=== PATIENT | male | born 1985 | race African-American/Black ===

== ENCOUNTER 2022-05-17 02:51 | Emergency (ER) | payer SELFPAY ==
[2022-05-18 00:36] LABS: Bilirubin Negative (Negative); Blood, Urine Small (Negative); Glucose, Urine (Dipstick) >=1000 mg/dL (Negative); Ketone, Urine Negative (Negative); Leukocyte Moderate (Negative); Nitrite Negative (Negative); Protein, Urine (Dipstick) Negative (Neg-Trace); Urobilinogen 0.2 mg/dL (Less than 2); pH, Urine 5.5 (5.0-9.0)
[2022-05-18 00:40] LABS: Bacteria/HPF 1+ HPF (None Seen); Clarity Hazy (Clear); RBC/HPF 0-3 HPF (0-3); Specific Gravity, Urine 1.005 (1.002-1.036); WBC/HPF Greater than 50 HPF (0-3)
[2022-05-18 17:16] LABS: Chlam.trachomatis by PCR,Urine DETECTED (NotDetected); GC N.gonorrhoeae PCR,UrineVOID DETECTED (NotDetected)
== END 2022-05-18 00:17 | disposition home or self-care (01) ==
LOC: MADERS 23:51
DX: Z20.2 Contact with and (suspected) exposure to infections with a predominantly sexual mode of transmission (principal); N39.0 Urinary tract infection, site not specified; Z91.14 Patient's other noncompliance with medication regimen; E11.9 Type 2 diabetes mellitus without complications; Z79.84 Long term (current) use of oral hypoglycemic drugs
CPT/HCPCS: 36416; 81003; 81015; 87491; 87591; 99283

== ENCOUNTER 2024-07-13 19:24 | Emergency (ER) | payer OTHER, SELFPAY ==
[2024-07-13 19:56] LABS: #Basophils 0.1 thou/uL (0.0-0.2); #Eosinophils 0.1 thou/uL (0.0-0.7); #Lymphocytes 2.2 thou/uL (1.20-3.40); #Monocytes 0.5 thou/uL (0.11-0.59); #Neutrophils 3.8 thou/uL (1.40-6.50); %Basophils 1.1 % (0.0-1.0); %Eosinophils 2.2 % (0.0-10.0); %Lymphocytes 32.8 % (21.0-51.0); %Monocytes 7.3 % (0.0-10.0); %Neutrophils 56.6 % (42.0-75.0); Hematocrit 44.3 % (42.0-52.0); Mean Corpuscular HGB CONC 31.5 g/dL (32.0-36.0); Mean Corpuscular Hemoglobin 25.8 pg (27.0-31.0); Mean Platelet Volume 7.8 fL (7.4-10.4); Platelet Count 223 10x3/uL (130-400); RBC Distribution Width 12.9 % (11.5-14.5); Red Blood Cell (RBC) Count 5.41 mill/uL (4.70-6.10); White Blood Cell (WBC) Count 6.6 10x3/uL (4.8-10.8)
[2024-07-13] MEDS ORDERED: Sodium Chloride 0.9% 1,000 ML ONE (20:08)
[2024-07-13 20:13] LABS: ALT (SGPT) 29 U/L (Less than 45); AST (SGOT) 22 U/L (11-34); Albumin 4.9 g/dL (3.1-4.5); Alkaline Phosphatase 140 U/L (40-110); Anion Gap 17 mmol/L (10-20); BUN (Urea Nitrogen) 10 mg/dL (8.9-20.6); Base Excess-Venous 2.9 mmol/L (-2.0 to 3.0); Bicarbonate (HCO3v) 27.7 mmol/L (22.0-28.0); Bilirubin, Total 0.4 mg/dL (0.3-1.2); CO2 Tension (PvCO2) 42.4 mmHg (42.0-51.0); Calc. Creatinine Clearance 0 mL/min (70-130); Calcium 10.7 mg/dL (7.8-10.44); Calcium, Ionized 1.23 mmol/L (1.15-1.33); Carbon Dioxide 25 mmol/L (22-29); Chloride 101 mmol/L (98-107); Chloride 102 mmol/L (98-107); Critical Call Chemistry ERS.JD@2010; Estimated GFR 100; Globulin 3.7 g/dL (2.4-3.5); Glucose 233 mg/dL (70-105); Hemoglobin - Calc 15.6 g/dL (14.0-18.0); Potassium 4.2 mmol/L (3.5-5.1); Potassium 4.3 mmol/L (3.5-5.1); Protein, Total 8.6 g/dL (6.0-8.3); Sodium 139 mmol/L (136-145); Sodium 139 mmol/L (138-145); vO2 Saturation-calc 99.7 % (60.0-85.0)
[2024-07-13] MEDS ORDERED: hydrALAZINE 10 MG TAB ONE (20:39)
== END 2024-07-13 20:49 ==
LOC: MADERS 19:24
DX: E11.65 Type 2 diabetes mellitus with hyperglycemia (principal); I10 Essential (primary) hypertension; Z55.6 Problems related to health literacy; Z79.84 Long term (current) use of oral hypoglycemic drugs
CPT/HCPCS: 36416; 80053; 82010; 82330; 82435; 82803; 84132; 84295; 85014; 85025; 99285; 36415-59; J7030